=== PATIENT | male | born 1955 | race Two or more races ===

== ENCOUNTER 2017-05-07 11:51 | Emergency (ER) | payer BC ==
[2017-05-07] MEDS ORDERED: Sodium Chloride 0.9% 10 ML Syringe FLUSH PRN (12:28)
--- NOTE | 2017-05-07 12:36 | EDM.PDOC ---
ED HPI GENERAL MEDICAL PROBLEM - General Chief Complaint: Neck Problem Stated Complaint: Left arm pain, weakness Time Seen by Provider: 05/07/17 12:10 Source of Information: Reports: Patient, RN Notes Reviewed History Limitations: Reports: Language Barrier (Speaks broken tamazight, Son translates and helps with history) - History of Present Illness INITIAL COMMENTS - FREE TEXT/NARRATIVE: 61 year old male presents to the ED, accompanied by his son, with chief complaint of shooting left arm pain and left sided neck pain. The symptoms started around 5pm yesterday. He describes numbness to his left face and pain behind his left ear. The symptoms are intermittent. He says his left arm feels heavy and mildly weak. He reports similar symptoms in his left leg which quickly resolved. He has no history of CVA. No midline neck tenderness. No recent fall or strain that he's aware of. No fever or chills. He reports a brief episode of mild, left sided chest pain. No shortness of breath, dyspnea on exertion, pleuritic chest pain, cough, unilateral or bilateral lower extremity edema or calf pain. No recent prolonged travel. He used to smoke but quit about 30 years ago. He has a family history of heart disease. He has no cardiac history except for hypertension. Left Neck Pain Score (Numeric/FACES): 7 Left Chest Pain Score (Numeric/FACES): 5 - Related Data Allergies Allergy/AdvReac Type Severity Reaction Status Date / Time No Known Allergies Allergy Verified 05/07/17 12:05 Home Meds: Home Meds amLODIPine [Norvasc] 5 mg PO DAILY 05/07/17 [History] Past Medical History Cardiovascular History: Reports: Hypertension Social & Family History - Tobacco Use Smoking Status *Q: Never Smoker - Recreational Drug Use Recreational Drug Use: No ED ROS GENERAL - Review of Systems Review Of Systems: See Below Constitutional: Reports: No Symptoms. Denies: Fever, Chills, Diaphoresis HEENT: Reports: No Symptoms Respiratory: Reports: No Symptoms. Denies: Shortness of Breath, Cough, Sputum Cardiovascular: Reports: Chest Pain. Denies: Dyspnea on Exertion, Edema, Lightheadedness GI/Abdominal: Reports: No Symptoms. Denies: Abdominal Pain, Nausea, Vomiting Neurological: Reports: Numbness, Weakness. Denies: Confusion, Dizziness, Headache, Paresthesia, Difficulty Walking ED EXAM, GENERAL - Physical Exam Exam: See Below Exam Limited By: No Limitations General Appearance: Alert, WD/WN, No Apparent Distress Eye Exam: Bilateral Eye: EOMI, Normal Inspection, PERRL Throat/Mouth: Normal Inspection, Normal Oropharynx Neck: Normal Inspection, Supple, Full Range of Motion, Tender Lateral (left muscle tenderness ). No: Limited Range of Motion, Tender Midline Respiratory/Chest: No Respiratory Distress, Lungs Clear, Normal Breath Sounds, No Accessory Muscle Use, Chest Non-Tender Cardiovascular: Normal Peripheral Pulses, Regular Rate, Rhythm, No Edema, No Murmur GI/Abdominal: Normal Bowel Sounds, Soft, Non-Tender Extremities: Normal Inspection, Normal Range of Motion. No: Saran's Sign, Leg Pain, Increased Warmth Neurological: Alert, Oriented, CN II-XII Intact, Normal Cognition, Normal Gait, No Motor/Sensory Deficits, Other (Strength is strong and equal to bilateral upper and lower extremties. Cerebellar testing intact (normal finger to nose; rapid alternating movements). Steady gait. ) Psychiatric: Normal Mood Skin Exam: Warm, Dry, Intact Course - Vital Signs Last Recorded V/S: Last Vital Signs Temp 97.8 F 05/07/17 12:02 Pulse 65 05/07/17 14:05 Resp 16 05/07/17 14:05 BP 119/73 05/07/17 14:05 Pulse Ox 95 05/07/17 14:05 - Orders/Labs/Meds Orders: Active Orders 24 hr Category Date Time Status Cardiac Monitoring [RC] . DIRECTED Care 05/07/17 12:32 Active EKG 12 Lead [EKG Documentation Completion] [RC] STAT Care 05/07/17 12:08 Active Peripheral IV Care [RC] . DIRECTED Care 05/07/17 12:33 Active Peripheral IV Insertion Adult [OM.PC] Stat Oth 05/07/17 12:32 Ordered Labs: Laboratory Tests 05/07/17 05/07/17 Range/Units 12:10 12:10 WBC 7.61 (4.23-9.07) K/mm3 RBC 5.38 (4.63-6.08) M/mm3 Hgb 16.1 (13.7-17.5) gm/L Hct 46.4 (40.1-51.0) % MCV 86.2 (79.0-92.2) fl MCH 29.9 (25.7-32.2) pg MCHC 34.7 (32.2-35.5) g/dl RDW Std Deviation 40.8 (35.1-43.9) fL Plt Count 223 (163-337) K/mm3 MPV 9.0 L (9.4-12.3) fl Neut % (Auto) 62.5 (34.0-67.9) % Lymph % (Auto) 24.7 (21.8-53.1) % [place] % (Auto) 11.0 (5.3-12.2) % Eos % (Auto) 1.1 (0.8-7.0) Baso % (Auto) 0.3 (0.1-1.2) % Neut # (Auto) 4.76 (1.78-5.38) K/mm3 Lymph # (Auto) 1.88 (1.32-3.57) K/mm3 [place] # (Auto) 0.84 H (0.30-0.82) K/mm3 Eos # (Auto) 0.08 (0.04-0.54) K/mm3 Baso # (Auto) 0.02 (0.01-0.08) K/mm3 Sodium 140 (136-145) mEq/L Potassium 4.0 (3.5-5.1) mEq/L Chloride 105 (98-107) mEq/L Carbon Dioxide 29 (21-32) mEq/L Anion Gap 10.0 (5-15) BUN 13 (7-18) mg/dL Creatinine 1.0 (0.7-1.3) mg/dL Est Cr Clr Drug Dosing 79.54 mL/min Estimated GFR (MDRD) > 60 (>60) mL/min BUN/Creatinine Ratio 13.0 L (14-18) Glucose 107 H (74-106) mg/dL Calcium 8.9 (8.5-10.1) mg/dL Total Bilirubin 1.0 (0.2-1.0) mg/dL AST 21 (15-37) U/L ALT 38 (16-63) U/L Alkaline Phosphatase 63 (46-116) U/L Troponin I < 0.017 (0.00-0.056) ng/mL Total Protein 7.9 (6.4-8.2) g/dl Albumin 4.0 (3.4-5.0) g/dl Globulin 3.9 gm/dL Albumin/Globulin Ratio 1.0 (1-2) Meds: Medications Discontinued Medications Generic Name Dose Route Start Last Admin Trade Name Alayna PRN Reason Stop Dose Admin Sodium Chloride 10 ml 05/07/17 12:28 05/07/17 12:38 Saline Flush FLUSH 10 ml ASDIRECTED PRN Administration Keep Vein Open - Re-Assessments/Exams Free Text/Narrative Re-Assessment/Exam: CBC and CMP are unremarkable. Troponin is negative. Chest x-ray is negative. EKG reveals SR 75 bpm with no acute ischemic changes. EKG read by Dr. Flanagan. CT of head and c-spine are negative for acute findings. The patient has no focal neurologic deficit. He reported chest pain to the triage nurse but when I asked, he denied chest pain. He complaints more of left sided neck discomfort. The symptoms started after he was lifting boxes over his head at work yesterday. Will treat for neck muscle strain. Thoroughly educated on return precautions. His PCP is listed as Arlene Maier. He was instructed to f/u in 2- 3 days for recheck. Departure - Departure Time of Disposition: 13:56 Disposition: Home, Self-Care 01 Condition: Good Clinical Impression: Neck muscle strain Qualifiers: Encounter type: initial encounter Qualified Code(s): S16.1XXA - Strain of muscle, fascia and tendon at neck level, initial encounter - Discharge Information Instructions: Muscle Strain Referrals: Janee Maier, [facility] [Primary Care Provider] - Forms: ED Department Discharge Additional Instructions: Your cardiac and neurologic workup today were normal. Follow-up with Arlene Maier in 2-3 days Return to ER with any new or worsening symptoms. Tylenol or Ibuprofen as needed for pain. Heating pad neck - My Orders Last 24 Hours: My Active Orders 05/07/17 12:08 EKG 12 Lead [EKG Documentation Completion] [RC] STAT 05/07/17 12:32 Cardiac Monitoring [RC] . DIRECTED Peripheral IV Insertion Adult [OM.PC] Stat 05/07/17 12:33 Peripheral IV Care [RC] . DIRECTED - Assessment/Plan Last 24 Hours: My Active Orders 05/07/17 12:08 EKG 12 Lead [EKG Documentation Completion] [RC] STAT 05/07/17 12:32 Cardiac Monitoring [RC] . DIRECTED Peripheral IV Insertion Adult [OM.PC] Stat 05/07/17 12:33 Peripheral IV Care [RC] . DIRECTED
--- NOTE | 2017-05-07 12:53 | CR ---
Chest: Portable view of the chest was obtained. Comparison: No previous study. Heart size and mediastinum are within normal limits for portable technique. Lungs are clear. Bony structures are grossly intact. Impression: 1. Nothing acute is seen on portable chest x-ray. Diagnostic code #1
--- NOTE | 2017-05-07 13:11 | CT ---
CT cervical spine Technique: Multiple axial sections were obtained from above C1 inferiorly to the bottom of T1. Reconstructed sagittal and coronal images were reviewed. Findings: Degenerative change is noted between the dens and anterior arch of C1. Detached bony density is seen off the anterior arch of C1 which is old and felt to be incidental. Small cyst noted within the base of the left side of the dens also felt to be incidental. Mild disc space narrowing is noted at C6-C7. Anterior osteophytes are seen at C4-C5 through C7-T1. Posterior spurring noted at C6-C7. Minimal scattered degenerative spurring seen within the uncovertebral joints. No fracture is seen. No bony central or bony neural foraminal stenosis is seen. Mild scattered degenerative apophyseal change is seen. Incidental note of ligamentum nuchal calcification. Impression: 1. Mild degenerative change as described above. Nothing acute is seen. Diagnostic code #2
--- NOTE | 2017-05-07 13:21 | CT ---
Head CT Technique: Multiple axial sections through the brain were obtained. Intravenous contrast was not utilized. Comparison: No previous intracranial imaging. Findings: Ventricles along with basal cisterns and sulci over the convexities are within normal limits for the patient's age. No abnormal parenchymal densities are seen within the brain parenchyma. No midline shift or mass effect is seen. Minimal mucosal thickening is seen within the ethmoid sinuses. No acute calvarial abnormality is appreciated. Impression: 1. Minimal and incidental sinus findings. 2. Nothing acute is identified on noncontrast head CT study. Diagnostic code #2
[2017-05-07 14:08] VITALS: BP 119/73
== END 2017-05-07 14:05 | disposition home or self-care (01) ==
LOC: JD.ED 11:51
DX: S16.1XXA Strain of muscle, fascia and tendon at neck level, initial encounter (principal); I10 Essential (primary) hypertension; Z79.899 Other long term (current) drug therapy; Z87.891 Personal history of nicotine dependence; X58.XXXA Exposure to other specified factors, initial encounter
CPT/HCPCS: 36415; 70450; 71010; 72125; 80053; 84484; 85025; 93005; 99285; J7050; 99284

== ENCOUNTER 2019-02-08 10:12 | Emergency (ER) | payer BC ==
[2019-02-08 10:34] VITALS: BP 140/88
--- NOTE | 2019-02-08 11:05 | EDM.PDOC ---
ED HPI GENERAL MEDICAL PROBLEM - General Chief Complaint: Lower Extremity Injury/Pain Stated Complaint: LEFT LEG INJURY Time Seen by Provider: 02/08/19 11:04 Source of Information: Reports: Patient History Limitations: Reports: No Limitations - History of Present Illness INITIAL COMMENTS - FREE TEXT/NARRATIVE: Patient is a 63-year-old male presents ED complaining of pain to his left leiva. Patient states approximately 2-3 weeks ago he hit his leiva on a train door. He developed some swelling to the medial aspect of the leiva along the proximal tib- fib. Pain has subsided to this location. He has noted over the past few weeks with prolonged standing while at work for 6-8 hours he develops pain that radiates down the anterior aspect of his leiva into his foot. There has been no worsening swelling. No bruising, no redness, no pain to the posterior aspect of his leg, numbness or tingling, knee pain, or any additional complaints. He has no history of blood clots to his lower extremity. He had no open wound to the affected area. He presents to the clinic today after attempting to go to the walk-in clinic for further evaluation. He was sent to the ED for x-rays of the left leiva. Otherwise he offers no significant complaints at this time. Left Leg Pain Score (Numeric/FACES): 3 - Related Data Allergies Allergy/AdvReac Type Severity Reaction Status Date / Time No Known Allergies Allergy Verified 02/08/19 10:34 Home Meds: Home Meds amLODIPine [Norvasc] 5 mg PO DAILY 05/07/17 [History] Past Medical History - Past Health History Medical/Surgical History: Denies Medical/Surgical History Cardiovascular History: Reports: Hypertension Social & Family History - Tobacco Use Smoking Status *Q: Never Smoker - Caffeine Use Caffeine Use: Reports: Coffee, Tea - Recreational Drug Use Recreational Drug Use: No Review of Systems - Review of Systems Review Of Systems: ROS reveals no pertinent complaints other than HPI. ED EXAM, GENERAL - Physical Exam Exam: See Below Exam Limited By: No Limitations General Appearance: Alert, WD/WN, No Apparent Distress Ears: Hearing Grossly Normal Nose: Normal Inspection Throat/Mouth: Normal Voice, No Airway Compromise Head: Atraumatic, Normocephalic Neck: Normal Inspection, Supple Respiratory/Chest: No Respiratory Distress, Lungs Clear, Normal Breath Sounds, No Accessory Muscle Use Cardiovascular: Normal Peripheral Pulses, Regular Rate, Rhythm, No Murmur Peripheral Pulses: 2+: Posterior Tibial (L) Extremities: Normal Range of Motion, Non-Tender, No Pedal Edema, Normal Capillary Refill, Other (Mild swelling noted along the medial border of the proximal tib-fib. No pain with palpation. No pain along the anterior aspect of the leiva. No pain with palpation of the posterior aspect of the lower extremity , knee, ankle, foot. Peripheral pulses are intact. Skin is pink warm and dry. Full range of motion of the ankle, knee, and hip. No redness, increased warmth , or bruising present. No swelling of the knee noted.) Neurological: Alert, Oriented, CN II-XII Intact, Normal Cognition, Normal Gait, No Motor/Sensory Deficits Psychiatric: Normal Affect, Normal Mood Skin Exam: Warm, Dry, Intact, Normal Color, No Rash Course - Vital Signs Last Recorded V/S: Last Vital Signs Temp 97.8 F 02/08/19 10:23 Pulse 78 02/08/19 10:23 Resp 16 02/08/19 10:23 BP 140/88 02/08/19 10:23 Pulse Ox 97 02/08/19 10:23 - Re-Assessments/Exams Free Text/Narrative Re-Assessment/Exam: X-ray of the left leiva will be obtained. X-ray of the left leiva reviewed with Dr. Oneill with no acute findings. I did discuss the x-ray results with the patient. I suspect the cause of the swelling to the proximal tib-fib along the medial border is a hematoma that has not resolved. Injury occurred 2-3 weeks ago. I also suspect that the pain along the anterior asked the leiva is actually leiva splints. I've asked the patient to follow up with his PCP for reevaluation this week. Return precautions were discussed with the patient. He had no further questions or concerns and agreed with plan. Departure - Departure Time of Disposition: 12:12 Disposition: Home, Self-Care 01 Condition: Good Clinical Impression: Anterior leiva splints, Hematoma of skin Leiva splint of left lower extremity Qualifiers: Encounter type: initial encounter Qualified Code(s): S86.892A - Other injury of other muscle(s) and tendon(s) at lower leg level, left leg, initial encounter - Discharge Information Instructions: Leiva Splints [facility], Leiva Splints, [id number] Referrals: Maurilio Donohue MD [Primary Care Provider] - Forms: ED Department Discharge Additional Instructions: Utilize Tylenol and ibuprofen for pain in alternating fashion. Refrain from any activities that cause worsening discomfort. Follow-up with PCP in 1 wk for reevaluation if pain persists. Return to the ED if you develop any new or worsening symptoms.
--- NOTE | 2019-02-08 13:56 | CR ---
Left tibia and fibula: AP and lateral views of the left tibia and fibula were obtained. Comparison: No previous study. Spur is noted off the plantar margin of the calcaneus as well as at the attachment of the Achilles tendon. Slight cortical thickening is noted posteriorly within the proximal tibia which has a benign appearance. No acute fracture or other abnormality is appreciated. Impression: 1. Findings which are felt to be incidental as noted above. Nothing acute is seen. Diagnostic code #2
== END 2019-02-08 12:34 | disposition home or self-care (01) ==
LOC: JD.ED 10:12
DX: S80.12XA Contusion of left lower leg, initial encounter (principal); I10 Essential (primary) hypertension; Z79.899 Other long term (current) drug therapy; X58.XXXA Exposure to other specified factors, initial encounter
CPT/HCPCS: 73590-26-LT; 73590-LT; 99282; 99283-25